=== PATIENT | female | born 1970 | race Two or more races ===

== ENCOUNTER 2022-05-29 08:04 | Outpatient (CLI) | payer OTHER ==
[~2022-05-29 08:04] MED LIST: BACTRIM DS TAB1 EACH PO; SYNTHROID88 MCG
== END 2022-05-29 08:09 | disposition home or self-care (01) ==
LOC: SONOGRAMA 08:04
PROVIDERS: ATTEND Pathology Anatomic Pathology & Clinical Pathology
DX: D44.0 Neoplasm of uncertain behavior of thyroid gland (principal); D34 Benign neoplasm of thyroid gland; E06.3 Autoimmune thyroiditis; E07.9 Disorder of thyroid, unspecified; E04.2 Nontoxic multinodular goiter

== ENCOUNTER 2022-09-11 11:02 | Outpatient (CLI) | payer OTHER | END 2022-09-11 11:04 | disposition home or self-care (01) | LOC: SONOGRAMA 11:02 | PROVIDERS: ATTEND Pathology Anatomic Pathology & Clinical Pathology | DX: D34 Benign neoplasm of thyroid gland (principal); D44.0 Neoplasm of uncertain behavior of thyroid gland; E06.3 Autoimmune thyroiditis; E07.9 Disorder of thyroid, unspecified ==

== ENCOUNTER 2024-04-27 10:25 | Inpatient (IN) | payer OTHER ==
[~2024-04-27] VITALS: Ht 157.5 cm; Wt 90.7 kg
[2024-04-27] MEDS ORDERED: SINGULAIR4 M1 PO (10:31)
[2024-04-27] MEDS ORDERED: CALCITRIOL0.25 MCG PO (10:31)
[2024-04-27] MEDS ORDERED: FAMOtidine 10 MG/ML (4ML VIAL) IV ONE (11:00)
[2024-04-27] MEDS ORDERED: PIPERACILLIN/TAZOBACTAM SODIUM 3.375 GM VIAL IV ONE (11:00)
[2024-04-27] MEDS ORDERED: KETOROLAC TROMETHAMINE 30 MG VIAL IU ONE (11:00)
[2024-04-27 11:40] LABS: HEMATOCRIT 36.6 % (36.0-45.00); HEMOGLOBIN 12.4 g/dL (12.0-15.00); MEAN CELL VOLUME 83.2 fL (80.00-100.00); MEAN CORPUSCULAR HEMOGLOBIN 28.2 pg (27.00-32.0); MEAN CORPUSCULAR HGB CONC 33.8 g/dl (32.0-36.0); PLATELET COUNT 320 K/uL (150-450); RED BLOOD COUNT 4.39 M/uL (4.00-6.00); RED CELL DISTRIBUTION WIDTH 14.4 % (11.5-14.5)
[2024-04-27 11:56] LABS: ERYTHROCYTE SEDIMENTATION RATE 78 mm/hr
[2024-04-27 12:00] LABS: ALBUMIN 3.2 gm/dL (3.4-5.0); BILIRUBIN TOTAL 0.36 mg/dL (0.3-1.2); CALCIUM 7.8 mg/dL (8.5-10.1); CREATININE SERUM 0.88 mg/dL (0.55-1.02); GFR 67.22; GLOBULINA 5.1 G/DL (2.4-3.5); POTASSIUM 3.65 mEq/L (3.5-5.1); TOTAL PROTEIN 8.3 gm/dL (6.4-8.2)
[2024-04-27 12:01] LABS: C-REACTIVE PROTEIN 15.3 MG/DL (0.00-0.29)
[2024-04-27 12:03] LABS: INR 1.03; PARTIAL THROMBOPLASTIN TIME 31.2 SECONDS (22.0-34.0); PROTHROMBIN TIME 11.2 SECONDS (9.0-11.5)
[2024-04-27 13:25] LABS: PH,URINE 5.5 (5.0-8.0); URINE APPEARANCE Turbid; URINE BILIRRUBIN Negative (NEGATIVE); URINE BLOOD Negative; URINE COLOR Yellow; URINE GLUCOSE Negative (NEGATIVE); URINE KETONE Trace (NEGATIVE); URINE LEUKOCYTE Moderate; URINE NITRATE Negative; URINE PROTEIN Trace (NEGATIVE); URINE UROBILINOGEN 0.2 E.U./dl
[2024-04-27 13:29] LABS: URINE BACTERIA 1677.9 uL (0.0-1933); URINE EPITHELIAL CELLS 49.2 uL (0.0-38.8); URINE RBC 33.5 uL (0.0-20.8); URINE WBC 81.3 uL (0.0-23.2)
[2024-04-27 13:31] LABS: URINE CAST 0.29 uL (0.0-1.40)
[2024-04-27 13:37] LABS: URINE CRYSTALS MANY /HPF
[2024-04-27] MEDS ORDERED: DIPHENHYDRAMINE HCL 50 MG/ML VIAL 1ML IV ONE (14:30)
[2024-04-27] MEDS ORDERED: METHYLPREDNISOLONE SOD SUCC 40 MG VIAL IV ONE (14:30)
[2024-04-27] MEDS ORDERED: 0.9 % SODIUM CHLORIDE 1,000 ML IV SCH (20:15)
[2024-04-27] MEDS ORDERED: ACETAMINOPHEN 500 MG GEL..CAP PO PRN (20:30)
[2024-04-27] MEDS ORDERED: MORPHINE SULFATE 2 MG/ML CARTRIDGE IV PRN (20:45)
[2024-04-28] MEDS ORDERED: PIPERACILLIN/TAZOBACTAM SODIUM 3.375 GM in DEXTROSE 5 % IN WATER 100 ML IV SCH
[2024-04-28 04:53] VITALS: BP 107/59; O2SAT 97
[2024-04-28] MEDS ORDERED: CALCITRIOL 0.25 MCG CAPSULE PO SCH (05:00)
[2024-04-28] MEDS ORDERED: LEVOTHYROXINE SODIUM 175 MCG TABLET PO SCH (06:00)
[2024-04-28] MEDS ORDERED: FAMOTIDINE/PF 20 MG in 0.9 % SODIUM CHLORIDE 8 ML IV PUSH SCH (09:00)
[2024-04-28] MEDS ORDERED: LIDOCAINE HCL 1%/EPINEPHRINE 20ML VIAL IJ SCH (13:00)
[2024-04-28] MEDS ORDERED: HYDROGEN PEROXIDE 118 ML SOLUTION TOP SCH (13:00)
[2024-04-28] MEDS ORDERED: METRONIDAZOLE/SODIUM CHLORIDE 500 MG/100 ML PIGGYBACK IV SCH (13:00)
[2024-04-28] MEDS ORDERED: BUPIVACAINE HCL/PF 0.25% 30ML VIAL InF SCH (13:00)
[2024-04-28] MEDS ORDERED: DIBUCAINE 30 GM TUBE RECTAL SCH (13:00)
[2024-04-28] MEDS ORDERED: POVIDONE-IODINE 118 ML BOTT TOP SCH (13:00)
[2024-04-28] MEDS ORDERED: HEMOSTATIC MATRIX 1 KIT KIT TOP SCH (13:00)
[2024-04-28] MEDS ORDERED: TAMSULOSIN HCL 0.4 MG CAP PO NR (14:00)
[2024-04-28] MEDS ORDERED: LACTOBACILLUS ACIDOPHILUS 1 CAP CAP PO NR (14:00)
[2024-04-28] MEDS ORDERED: CALCITRIOL 0.5 MCG CAPSULE PO SCH (17:00)
[2024-04-28] MEDS ORDERED: HYOSCYAMINE SULFATE 0.125 MG TAB.SUBL SL SCH (17:00)
[2024-04-28 17:11] VITALS: BP 115/69
[2024-04-29 01:49] VITALS: BP 127/50; O2SAT 96
[2024-04-29 05:40] LABS: HEMATOCRIT 33.6 % (36.0-45.00); HEMOGLOBIN 11.2 g/dL (12.0-15.00); MEAN CELL VOLUME 83.4 fL (80.00-100.00); MEAN CORPUSCULAR HEMOGLOBIN 27.8 pg (27.00-32.0); MEAN CORPUSCULAR HGB CONC 33.3 g/dl (32.0-36.0); PLATELET COUNT 325 K/uL (150-450); RED BLOOD COUNT 4.03 M/uL (4.00-6.00); RED CELL DISTRIBUTION WIDTH 13.7 % (11.5-14.5)
[2024-04-29 07:06] LABS: ALBUMIN 2.6 gm/dL (3.4-5.0); CREATININE SERUM 0.85 mg/dL (0.55-1.02); GFR 69.96; MAGNESIUM 1.9 mg/dL (1.8-2.4); POTASSIUM 4.08 mEq/L (3.5-5.1)
[2024-04-29 07:31] LABS: CALCIUM 6.4 mg/dL (8.5-10.1)
[2024-04-29 07:53] VITALS: BP 112/70
[2024-04-29] MEDS ORDERED: LACTOBACILLUS ACIDOPHILUS 1 CAP CAP PO SCH (09:00)
[2024-04-29] MEDS ORDERED: ENOXAPARIN SODIUM 40 MG/0.4 ML SYRINGE SUBCUTANEO SCH (09:00)
[2024-04-29] MEDS ORDERED: TAMSULOSIN HCL 0.4 MG CAP PO SCH (09:00)
[2024-04-29] MEDS ORDERED: FAMOTIDINE/PF 20 MG in 0.9 % SODIUM CHLORIDE 8 ML IV PUSH SCH (21:00)
== END 2024-04-29 15:50 | disposition home or self-care (01) | DRG 346 ==
LOC: ER 10:27 → SEC-K 20:38 → MEDJ 20:38
PROVIDERS: General Practice; Surgery; ADMIT Student in an Organized Health Care Education/Training Program; ATTEND Student in an Organized Health Care Education/Training Program
PROC: BW21YZZ Computerized Tomography (CT Scan) of Abdomen and Pelvis using Other Contrast (ICD-10-PCS; 2024-04-27)
PROC: 3E0T3BZ Introduction of Anesthetic Agent into Peripheral Nerves and Plexi, Percutaneous Approach (ICD-10-PCS; 2024-04-28)
PROC: 0DBP8ZZ Excision of Rectum, Via Natural or Artificial Opening Endoscopic (ICD-10-PCS; 2024-04-28)
PROC: 0D9P4ZZ Drainage of Rectum, Percutaneous Endoscopic Approach (ICD-10-PCS; principal; 2024-04-28 10:00)
DX: K61.0 Anal abscess (principal)

== ENCOUNTER 2024-08-25 07:00 | Day surgery (SDC) | payer OTHER ==
[2024-08-17 12:06] LABS: BASO % 1.1 % (0.1-1.2); EOS # 0.67 (0.04-0.54); EOS % 10.7 % (0.7-7.0); LYMPH # 1.61 (1.18-3.74); LYMPH % 25.8 % (19.3-53.1); MEAN PLATELET VOLUME 9.90 fl (9.4-12.4); MONO # 0.42 (0.24-0.82); MONO % 6.7 % (4.7-12.5); NEUT # 3.45 (1.56-6.13); NEUT % 55.4 % (34.0-71.1); RED CELL DISTRIBUTION WIDTH 13.2 % (11.6-14.4)
[2024-08-17 12:07] LABS: URINE APPEARANCE Clear; URINE BILIRRUBIN Negative (NEGATIVE); URINE BLOOD Trace; URINE COLOR Yellow; URINE GLUCOSE Negative (NEGATIVE); URINE KETONE Negative (NEGATIVE); URINE LEUKOCYTE Trace; URINE NITRATE Negative; URINE PROTEIN Negative (NEGATIVE); URINE UROBILINOGEN 0.2 E.U./dl
[2024-08-17 12:11] LABS: URINE BACTERIA 51.6 uL (0.0-1933); URINE EPITHELIAL CELLS 3.3 uL (0.0-38.8); URINE RBC 9.3 uL (0.0-20.8); URINE WBC 4.4 uL (0.0-23.2)
[2024-08-17 12:21] VITALS: BP 126/71
[2024-08-17 12:22] LABS: URINE CAST 0.14 uL (0.0-1.40)
[2024-08-17 12:44] LABS: INR 0.98
[2024-08-17 13:20] LABS: ALT/SGPT 25.0 U/L (12-78); AST/SGOT 26.0 U/L (15-37); BILIRUBIN TOTAL 0.59 mg/dL (0.3-1.2); BUN CREA RATIO 25.0 (7.0-25.0); CREATININE SERUM 0.87 mg/dL (0.55-1.02); GFR 68.11; GLOBULINA 4.2 G/DL (2.4-3.5); GLUCOSE FASTING 90.0 mg/dL (65-100); OSMOLALITY SERUM 290.0 MOSM/KG (275-295)
[~2024-08-25] VITALS: Ht 157.5 cm; Wt 86.2 kg
[~2024-08-25 07:00] MED LIST changes: +ALBUTEROL1.25 MG/3 IH; +ATROVENT HFA12.9 GM IH; +CALCITRIOL0.25 MCG PO; +SINGULAIR4 M1 PO; -SYNTHROID88 MCG; +SYNTHROID88 MCG PO
[2024-08-25] MEDS ORDERED: CEFTRIAXONE SODIUM 2,000 MG VIAL IV ONE (09:15)
[2024-08-25] MEDS ORDERED: BUPIVACAINE HCL/PF 0.25% 30ML VIAL InF ONE (09:15)
[2024-08-25] MEDS ORDERED: METRONIDAZOLE/SODIUM CHLORIDE 500 MG/100 ML PIGGYBACK IV ONE (09:15)
[2024-08-25] MEDS ORDERED: HEMOSTATIC MATRIX 1 KIT KIT TOP ONE (09:30)
[2024-08-25] MEDS ORDERED: POVIDONE-IODINE 118 ML BOTT TOP ONE (09:30)
[2024-08-25] MEDS ORDERED: DIBUCAINE 30 GM TUBE RECTAL ONE (09:30)
[2024-08-25] MEDS ORDERED: LIDOCAINE HCL 1%/EPINEPHRINE 20ML VIAL IJ ONE (09:30)
[2024-08-25] MEDS ORDERED: MORPHINE SULFATE 4 MG/ML VIAL IV ONE (10:40)
[2024-08-25] MEDS ORDERED: TAMSULOSIN HCL 0.4 MG CAP PO ONE (12:30)
[2024-08-25] MEDS ORDERED: OXYCODONE HCL5 MG PO (13:15)
== END 2024-08-25 15:25 | disposition home or self-care (01) ==
LOC: CIR.AMB 07:00
PROVIDERS: ATTEND Surgery
DX: K60.322 Anal fistula, complex, persistent (principal); K62.89 Other specified diseases of anus and rectum; K62.5 Hemorrhage of anus and rectum